=== PATIENT | male | born 1965 | race African-American/Black ===

== ENCOUNTER 2023-10-16 10:52 | Emergency (ER) | payer MEDICAID ==
[~2023-10-16] VITALS: Ht 177.8 cm; Wt 83.0 kg
[2023-10-16 11:10] VITALS: O2SAT 100
[2023-10-16] MEDS ORDERED: KETOROLAC 60MG/2ML VIAL IM ONE (13:30)
[2023-10-16] MEDS ORDERED: KETO10TA2 MT (14:41)
[2023-10-16 15:00] VITALS: BP 128/78; PULSE 87; RESP 20; TEMP 98.4
== END 2023-10-16 15:01 | disposition home or self-care (01) ==
LOC: ER 10:52
DX: M25.552 Pain in left hip (principal); M25.551 Pain in right hip
CPT/HCPCS: 99283; 73522; 96372; J1885

== ENCOUNTER 2024-02-27 13:17 | Emergency (ER) | payer MEDICAID ==
[~2024-02-27] VITALS: Ht 172.7 cm; Wt 72.6 kg
[~2024-02-27 13:17] MED LIST: KETO10TA2 MT
[2024-02-27 13:21] VITALS: O2SAT 98
[2024-02-27] MEDS ORDERED: CYCL10TA21 MT (14:03)
[2024-02-27] MEDS ORDERED: NAPR-1176 MT (14:03)
[2024-02-27] MEDS: KETOROLAC 30MG/ML VIAL IM ONE (14:19)
[2024-02-27] MEDS: CYCLOBENZAPRINE 10MG TABLET PO ONE (14:20)
[2024-02-27] MEDS ORDERED: AMOX-494 MT (14:32)
[2024-02-27 14:45] VITALS: BP 128/84; PULSE 89; RESP 17; TEMP 98.5
== END 2024-02-27 16:09 | disposition home or self-care (01) ==
LOC: ER 13:17
DX: K08.89 Other specified disorders of teeth and supporting structures (principal); M25.551 Pain in right hip
CPT/HCPCS: 73502; 96372; 99283; J1885; Z7610